=== PATIENT | female | born 1995 | race Caucasian/White ===

== ENCOUNTER 2022-11-13 22:29 | Inpatient (IN) ==
[2022-11-13] MEDS ORDERED: OXYTOCIN 30 UNITS/500 ML BAG IV PRN (23:38)
[2022-11-13] MEDS ORDERED: LIDOCAINE 1% LOCAL 20 ML VIAL INFIL PRN (23:38)
--- NOTE | 2022-11-13 23:50 | History & Physical Report ---
Date of Service November 13, 2022 Assessment & Plan (1) Active labor at term: (2) Uterine contractions at greater than 20 weeks of gestation: Plan: 27-year-old G1, P0 at 39 weeks and 6 days of gestation presenting with regular, painful contractions and cervical change, being admitted for labor, desires for epidural. Vital signs stable afebrile, GBS negative, heart rate reassuring, Plan to admit, monitor, labs, anesthesiology consult for epidural. Admission and Anticipated Discharge Date Admission Date: November 13, 2022 History of Present Illness Primary Care Provider: NO PCP Patient is a 27-year-old G1, P0 at 39 weeks and 6 days of gestation who has been feeling contractions all day, got more regular and painful for the last few hours. No leakage of fluid or bleeding. She reports good movements. Her has been uncomplicated, GBS negative. She has a history of congenital PFO and cardiac functions were normal per echocardiogram. echo was within normal limits. Allergies Allergy/AdvReac Type Severity Reaction Status Date / Time No Known Allergies Verified 07/13/18 23:11 Home Medications Medication Instructions Recorded Confirmed Type aspirin 81 mg chewable tablet 81 mg PO DAILY 11/13/22 11/13/22 History prenat.vits,shivam,twm-hwwz-ukzls 1 tab PO DAILY 11/13/22 11/13/22 History vitamin B12 0.5 mg-folic acid 1 mg 1 tab PO DAILY 11/13/22 11/13/22 History tablet Patient History Surgical History Hx of breast reduction, elective [place] teeth removed Social History Smoking Status: Never smoker Hx Alcohol Use: No Hx Substance Use: No Preferred Language: Cypriot Communication Ability: Effective 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 Review of Systems as per Subjective / HPI Physical Exam Constitutional: WD/WN, vitals as above well developed, well nourished and + acute distress (With contraction) Genitourinary: normal external appearance OB Exam Abdomen: + vertex Manual OB Exam: + cervical dilation 3 cm, + cervical effacement 90% and + station -1 OB Exam Monitor Tracing: + category I Results & Data Vital Signs (Past 12 Hours) Vital Signs Pulse Resp BP 11/13/22 22:47 18 11/13/22 22:43 83 131/68 Code Status & VTE Plan VTE Prophylaxis Plan VTE Prophylaxis will be ordered: No
[2022-11-13] MEDS: LACTATED RINGER'S 1,000 ML IV PRN (23:56)
[2022-11-14] MEDS ORDERED: ePHEDrine sulfate 50 MG/ML AMP ONE (00:11)
[2022-11-14] MEDS ORDERED: SODIUM CHLORIDE 0.9% PF INJ 10 ML VIAL ONE (00:11)
[2022-11-14] MEDS ORDERED: BUPIVACAINE 0.25% PF 30 ML VIAL ONE (00:11)
[2022-11-14] MEDS ORDERED: fentaNYL citrate PF 100 MCG/2 ML VIAL ONE (00:11)
[2022-11-14] MEDS ORDERED: LIDOCAINE 2%/EPINEPHRINE 1:200,000 20 ML PF ONE (00:11)
[2022-11-14] MEDS ORDERED: fentaNYL 2MCG/ML ROPIVACAINE 1.25MG/ML 100 ML BAG EPI ONE (00:12)
[2022-11-14 00:15] LABS: Hematocrit (blood only) 38.2 % (37.0-47.0); Mean Corpuscular Hemoglobin 31.4 pg (25.0-34.0); Mean Corpuscular Volume 92.3 fL (80.0-100.0); Mean Platelet Volume 10.3 fL (9.4-12.4); Platelet Count 203 K/uL (130-400); RDW Coefficient of Variation 14.7 % (11.5-14.5); RDW Standard Deviation 49.7 fL (36.4-46.3); Red Blood Count 4.14 M/uL (4.20-5.40); White Blood Count 14.45 K/ul (4.8-10.8)
--- NOTE | 2022-11-14 00:17 | Anesthesiology Consultation ---
Date of Service November 14, 2022 Assessment & Plan (1) Encounter for pre-operative examination: Chart Review Chart Review: Acceptable Risk for Labor Epidural History Height/Weight Height: 5 ft 2 in Weight: 83.007 kg Allergies Allergy/AdvReac Type Severity Reaction Status Date / Time No Known Allergies Verified 07/13/18 23:11 Medications Home Medications Medication Instructions Recorded Confirmed Last Taken aspirin 81 mg chewable tablet 81 mg PO DAILY 11/13/22 11/13/22 11/13/22 prenat.vits,shivam,qmy-nfpl-evxsb 1 tab PO DAILY 11/13/22 11/13/22 11/13/22 vitamin B12 0.5 mg-folic acid 1 mg 1 tab PO DAILY 11/13/22 11/13/22 11/13/22 tablet Active Medications Generic Name Dose Route Start Last Admin Trade Name Freq PRN Reason Stop Dose Admin Lactated Ringer's 1,000 mls @ 150 mls/hr 11/13/22 23:38 11/13/22 23:56 Lr IV 11/15/22 23:37 999 mls/hr .[id number] PRN Administration L&D Protocol Protocol Past Medical History Medical History (Updated 11/14/22 @ 00:17 by Veto Soto MD) No significant medical problems Past Surgical History Surgical History Hx of breast reduction, elective [place] teeth removed Social History Smoking Status: Never smoker Hx Alcohol Use: No Hx Substance Use: No substance use type: does not use Physical Exam Vital Signs Last Vital Signs Temp 37.0 C 11/13/22 23:53 Pulse 76 11/14/22 00:13 Resp 18 11/13/22 23:53 BP 131/68 11/13/22 22:43 Pulse Ox 100 11/14/22 00:13 Testing Laboratory Results 11/14/22 00:02
[2022-11-14] MEDS ORDERED: ePHEDrine sulfate 50 MG/ML AMP IV PRN (00:49)
[2022-11-14] MEDS ORDERED: ONDANSETRON INJ 2 MG/ML 2 ML VIAL IV PRN (00:49)
[2022-11-14] MEDS ORDERED: NALOXONE HCL 1 MG in SODIUM CHLORIDE 0.9% 1000ML 1,000 ML IV PRN (00:49)
[2022-11-14] MEDS ORDERED: fentaNYL 2MCG/ML ROPIVACAINE 1.25MG/ML 100 ML BAG EPI PRN (00:49)
[2022-11-14] MEDS ORDERED: NALOXONE HCL 0.4 MG/1 ML VIAL/CARP IV PRN (00:49)
[2022-11-14] MEDS: LACTATED RINGER'S 1,000 ML IV PRN ×2 (02:11→08:42)
[2022-11-14] MEDS ORDERED: OXYTOCIN 30 UNITS/500 ML BAG IV PRN ×2 (03:57→11:58)
--- NOTE | 2022-11-14 09:50 | Labor Progress Brief Note ---
Date of Service November 14, 2022 Assessment & Plan Admission and Anticipated Discharge Date Admission Date: November 13, 2022 Physical Exam Genitourinary: Manual OB Exam: + cervical dilation 10 cm, + cervical effacement 100%, + station 0 and + amniotic fluid clear OB Exam Monitor Tracing: + external FHT monitor used, + external uterine monitor used, + category I and + normal FHT variability AROM with Amni-hook clear fluid Results & Data Vital Signs (Past 12 Hours) Vital Signs Temp Pulse Resp BP Pulse Ox O2 Del Method 11/14/22 07:20 37.0 C 16 11/14/22 07:20 Room Air 11/13/22 22:47 18 11/14/22 09:48 105 H 99 11/14/22 09:43 98 H 98 11/14/22 09:42 103 H 127/74 11/14/22 09:38 100 H 99 11/14/22 09:30 18 11/14/22 09:30 18 11/14/22 09:33 98 H 100 11/14/22 09:28 90 98 11/14/22 09:26 90 124/71 11/14/22 09:15 37.2 C 11/14/22 09:23 104 H 100 11/14/22 09:00 18 11/14/22 09:00 18 11/14/22 09:18 95 H 100 11/14/22 09:13 115 H 136/73 100 11/14/22 08:30 16 11/14/22 08:30 16 11/14/22 09:08 92 H 100 11/14/22 09:03 104 H 99 11/14/22 08:58 96 H 99 11/14/22 08:56 87 105/58 L 11/14/22 08:53 85 100 11/14/22 08:48 92 H 98 11/14/22 08:43 89 100 11/14/22 08:41 76 137/74 11/14/22 08:38 80 100 11/14/22 08:33 90 100 11/14/22 08:28 87 100 11/14/22 08:27 80 133/77 11/14/22 08:23 98 H 100 11/14/22 08:18 80 100 11/14/22 08:13 78 100 11/14/22 08:00 18 11/14/22 08:00 18 11/14/22 08:11 82 153/76 H 11/14/22 08:08 81 99 11/14/22 08:03 76 99 11/14/22 07:58 84 100 11/14/22 07:56 96 H 111/57 L 11/14/22 07:53 88 99 11/14/22 07:48 79 99 11/14/22 07:43 79 100 11/14/22 07:41 85 114/56 L 11/14/22 07:38 85 100 11/14/22 07:33 80 100 11/14/22 07:28 78 100 11/14/22 07:27 75 102/55 L 11/14/22 07:23 89 99 11/14/22 07:18 85 100 11/14/22 07:13 79 99 11/14/22 07:11 86 155/60 H 11/14/22 07:08 86 100 11/14/22 07:03 115 H 100 11/14/22 06:58 79 100 11/14/22 06:56 77 147/65 H 11/14/22 06:53 83 100 11/14/22 06:48 88 98 11/14/22 06:43 84 98 11/14/22 06:41 75 112/58 L 11/14/22 06:38 75 98 11/14/22 06:33 85 98 11/14/22 06:28 85 99 11/14/22 06:26 83 117/60 11/14/22 06:23 75 98 11/14/22 06:18 88 98 11/14/22 06:13 80 99 11/14/22 06:12 70 115/60 11/14/22 06:08 82 99 11/14/22 06:03 74 100 11/14/22 05:58 94 H 99 11/14/22 05:57 91 H 117/64 11/14/22 05:53 84 100 11/14/22 05:48 81 100 11/14/22 05:43 83 100 11/14/22 05:42 80 102/59 L 11/14/22 05:38 79 100 11/14/22 05:33 89 100 11/14/22 05:28 83 100 11/14/22 05:26 90 104/57 L 11/14/22 05:23 83 97 11/14/22 05:18 81 97 11/14/22 05:13 82 97 11/14/22 05:11 79 107/59 L 11/14/22 05:08 86 97 11/14/22 05:03 78 99 11/14/22 05:00 18 11/14/22 05:00 18 11/14/22 04:58 91 H 98 11/14/22 04:57 82 107/56 L 11/14/22 04:53 96 H 98 11/14/22 04:48 92 H 100 11/14/22 04:43 86 100 11/14/22 04:41 93 H 106/55 L 11/14/22 04:38 86 100 11/14/22 04:33 96 H 100 11/14/22 04:28 84 100 11/14/22 04:27 87 110/55 L 11/14/22 04:23 88 100 11/14/22 04:18 90 99 11/14/22 04:13 16 11/14/22 04:13 36.7 C 100 H 16 97 11/14/22 04:11 85 104/59 L 11/14/22 04:08 81 96 11/14/22 04:03 90 97 11/14/22 04:00 82 94 11/14/22 03:58 82 95 11/14/22 03:56 77 101/53 L 11/14/22 03:53 81 95 11/14/22 03:48 78 95 11/14/22 03:43 79 95 11/14/22 03:41 82 108/58 L 11/14/22 03:38 82 95 11/14/22 03:33 83 95 11/14/22 03:28 83 95 11/14/22 03:26 81 106/54 L 11/14/22 03:23 83 96 11/14/22 03:18 84 97 11/14/22 03:13 91 H 98 11/14/22 03:11 83 110/57 L 11/14/22 03:08 83 97 11/14/22 03:03 81 96 11/14/22 02:58 102 H 99 11/14/22 02:57 78 121/61 11/14/22 02:53 82 97 11/14/22 02:48 90 97 11/14/22 02:43 81 97 11/14/22 02:42 76 104/54 L 11/14/22 02:38 76 98 11/14/22 02:33 75 97 11/14/22 02:28 79 98 11/14/22 02:27 79 100/53 L 11/14/22 02:23 79 98 11/14/22 02:18 76 99 11/14/22 02:13 94 H 99 11/14/22 02:11 90 95/50 L 11/14/22 02:08 89 98 11/14/22 02:03 94 H 94 11/14/22 01:58 90 95 11/14/22 01:59 89 94 11/14/22 01:56 88 92/53 L 11/14/22 01:53 92 H 95 11/14/22 01:48 91 H 95 11/14/22 01:43 87 98 11/14/22 01:38 84 97 11/14/22 01:33 90 98 11/14/22 01:28 93 H 98 11/14/22 01:25 82 111/53 L 11/14/22 01:23 93 H 97 11/14/22 01:21 86 113/53 L 11/14/22 01:18 83 98 11/14/22 01:15 80 103/54 L 11/14/22 01:13 82 98 11/14/22 01:10 82 111/51 L 11/14/22 01:08 82 97 11/14/22 01:06 88 107/52 L 11/14/22 01:03 94 H 98 11/14/22 00:59 18 11/14/22 00:59 36.8 C 90 18 103/55 L 11/14/22 00:58 84 99 11/14/22 00:57 90 104/52 L 11/14/22 00:53 84 99 11/14/22 00:54 83 102/51 L 11/14/22 00:51 84 114/58 L 11/14/22 00:48 99 11/14/22 00:48 80 11/14/22 00:48 85 18 124/55 L 11/14/22 00:45 88 130/74 11/14/22 00:43 87 100 11/14/22 00:41 95 H 122/63 11/14/22 00:38 100 H 100 11/14/22 00:33 99 H 100 11/14/22 00:28 101 H 100 11/14/22 00:23 87 99 11/14/22 00:13 76 100 11/14/22 00:08 74 100 11/14/22 00:03 77 100 11/13/22 23:53 18 11/13/22 23:53 37.0 C 18 11/13/22 22:43 37.0 C 83 131/68
--- NOTE | 2022-11-14 11:28 | Delivery Summary ---
Vaginal Delivery Summary Date of Service November 14, 2022 Vaginal Delivery Summary Delivery Note live female DARA with nuchal cord x1 reduced at delivery with delayed cord clamping and Apgars 8/9 weight pending. Cord blood obtained followed by spontaneous delivery of intact placenta with 3VC. Small 1st degree vaginal tear repaired with 3/0 Vicryl suture. EBL 100 ml. Final sponge, needle and instrument count are correct. Mom and baby stable.
[2022-11-14] MEDS ORDERED: DIPHTHERIA/TETANUS/PERTUSSIS 0.5mL SYR/VIAL (Age 7+yrs) IM ONE (11:58)
[2022-11-14] MEDS ORDERED: bisacodyL 10 MG SUPP PR PRN (11:58)
[2022-11-14] MEDS ORDERED: ACETAMINOPHEN 325 MG TAB PO PRN (11:58)
[2022-11-14] MEDS ORDERED: BENZOCAINE 20% AER SPR 82.5 GM CAN EXT PRN (11:58)
[2022-11-14] MEDS ORDERED: HYDROCORTISONE ACETATE 25 MG SUPP PR PRN (11:58)
[2022-11-14] MEDS ORDERED: IBUPROFEN 600 MG TAB PO PRN (11:58)
--- NOTE | 2022-11-14 12:19 | Anesthesia Procedure Note ---
Date of Service November 14, 2022 Anesthesia Post Epidural Note Vital Signs Vital Signs: Temp Pulse Resp BP Pulse Ox O2 Del Method 36.8 C 88 16 119/63 100 Room Air 11/14/22 12:10 11/14/22 12:10 11/14/22 12:10 11/14/22 12:10 11/14/22 11:13 11/14/22 07:20 Pain Intensity Back: Pain Intensity: 0 Notes Mental Status: alert / awake / arousable and participated in evaluation Nausea / Vomiting: adequately controlled Pain: adequately controlled Airway Patency, RR, SpO2: stable & adequate BP & HR: stable & adequate Hydration State: stable & adequate Neuraxial Anesthesia: was administered and sensory block is resolving Anesthetic Complications: no major complications apparent and Pt Satisfied with anesthetic care Epidural: Removed without complications and With tip intact
[2022-11-14] MEDS ORDERED: DOCUSATE SODIUM 100 MG CAP PO SCH (21:00)
[2022-11-15] MEDS ORDERED: Nursing to Pharmacy Communication SCH ×2 (00:15→08:15)
[2022-11-15] MEDS: IBUPROFEN 200 MG/10 ML UDC PO PRN ×4 (04:26→21:02)
[2022-11-15] MEDS ORDERED: FERROUS SULFATE 325 MG TAB PO SCH (08:00)
[2022-11-15 08:10] LABS: Hematocrit (blood only) 32.6 % (37.0-47.0); Hemoglobin 11.1 g/dl (12.0-16.0); Mean Corpuscular Hemoglobin 31.4 pg (25.0-34.0); Mean Corpuscular Volume 92.1 fL (80.0-100.0); Mean Platelet Volume 10.4 fL (9.4-12.4); Platelet Count 156 K/uL (130-400); RDW Coefficient of Variation 15.1 % (11.5-14.5); RDW Standard Deviation 50.6 fL (36.4-46.3); Red Blood Count 3.54 M/uL (4.20-5.40); White Blood Count 13.78 K/ul (4.8-10.8)
[2022-11-15] MEDS ORDERED: ACETAMINOPHEN SUSP 325 MG/10.15 ML UDC PO PRN (08:15)
[2022-11-15] MEDS ORDERED: NON-FORMULARY MEDICATION (Prenat.Vits,Cal,Min-Iron-Folic Tablet) PO SCH (09:00)
[2022-11-15] MEDS ORDERED: NON-FORMULARY MEDICATION (Vitamin B12-Folic Acid 0.5-1 mg Tablet) PO SCH (09:00)
[2022-11-15] MEDS: DOCUSATE SODIUM SYRUP 100 MG/10 ML UDC PO SCH ×2 (09:05→20:35)
[2022-11-15] MEDS: FERROUS SULFATE 325 MG/7.4 ML UDP PO SCH (11:01)
[2022-11-15] MEDS: PRENATAL VITAMIN 1 TAB PO SCH (11:01)
--- NOTE | 2022-11-15 11:02 | Obstetrical Progress Note ---
Date of Service November 15, 2022 Subjective Ambulation: ambulating normally Voiding: no voiding problems Passing Gas:: Yes Diet Tolerance:: regular diet Lochia:: Small Feeding Type:: breast feeding Current Pain Level(1-10): 0 Physical Exam Constitutional WD/WN, vitals as above Gastrointestinal (Abdomen) Inspection/Auscultation: abdomen normal to inspection fundus firm below U Musculoskeletal Extremities: extremities normal to inspection Skin no rashes, warm and dry Neurologic patellar DTR's 2+ bilat, sensation intact Psychiatric A+Ox3, euthymic affect Results & Data Vital Signs (Past 12 Hours) Vital Signs Temp Pulse Resp BP Pulse Ox O2 Del Method 11/15/22 07:40 36.7 C 76 16 112/72 98 Room Air 11/15/22 04:25 37.0 C 89 16 114/71 99 Room Air 11/14/22 23:50 36.9 C 101 H 16 118/69 99 Room Air Laboratory Results 11/13/22 11/14/22 11/15/22 23:37 00:02 07:55 WBC 14.45 H 13.78 H RBC 4.14 L 3.54 L Hgb 13.0 11.1 L Hct 38.2 32.6 L MCV 92.3 92.1 MCH 31.4 31.4 MCHC 34.0 34.0 RDW Std Deviation 49.7 H 50.6 H RDW Coeff of Yareli 14.7 H 15.1 H Plt Count 203 156 MPV 10.3 10.4 SARS-CoV-2, RNA, NAAT NEGATIVE
[2022-11-15] MEDS ORDERED: bisacodyL 5 MG TABEC PO SCH (20:00)
[2022-11-16] MEDS: IBUPROFEN 200 MG/10 ML UDC PO PRN (04:41)
--- NOTE | 2022-11-16 07:22 | Obstetrical Progress Note ---
Date of Service November 16, 2022 Subjective Ambulation: ambulating normally Voiding: no voiding problems Passing Gas:: Yes Diet Tolerance:: regular diet Lochia:: Small Feeding Type:: bottle feeding doing well Physical Exam Constitutional WD/WN, vitals as above Results & Data Vital Signs (Past 12 Hours) Vital Signs Temp Pulse Resp BP Pulse Ox O2 Del Method 11/15/22 23:25 36.7 C 82 18 108/68 98 Room Air Laboratory Results 11/13/22 11/14/22 11/15/22 23:37 00:02 07:55 WBC 14.45 H 13.78 H RBC 4.14 L 3.54 L Hgb 13.0 11.1 L Hct 38.2 32.6 L MCV 92.3 92.1 MCH 31.4 31.4 MCHC 34.0 34.0 RDW Std Deviation 49.7 H 50.6 H RDW Coeff of Yareli 14.7 H 15.1 H Plt Count 203 156 MPV 10.3 10.4 SARS-CoV-2, RNA, NAAT NEGATIVE
[2022-11-16 07:43] LABS: Hematocrit (blood only) 35.2 % (37.0-47.0); Hemoglobin 11.6 g/dl (12.0-16.0)
[2022-11-16] MEDS: FERROUS SULFATE 325 MG/7.4 ML UDP PO SCH (08:51)
[2022-11-16] MEDS: DOCUSATE SODIUM SYRUP 100 MG/10 ML UDC PO SCH (08:51)
[2022-11-16] MEDS: PRENATAL VITAMIN 1 TAB PO SCH (08:52)
== END 2022-11-16 09:45 | disposition home or self-care (01) | DRG 807 ==
LOC: OPB 22:29 → 4S1 22:33 → 4E2 11-14 14:06
DX: Z37.0 Single live birth; O70.0 First degree perineal laceration during delivery; O69.81X0 Labor and delivery complicated by cord around neck, without compression, not applicable or unspecified; Z79.82 Long term (current) use of aspirin

== ENCOUNTER 2023-11-24 03:21 | Inpatient (IN) ==
[2023-11-24] MEDS ORDERED: LIDOCAINE 1% LOCAL 20 ML VIAL INFIL PRN (03:38)
[2023-11-24] MEDS: LACTATED RINGER'S 1,000 ML IV PRN (03:42)
[2023-11-24 04:10] LABS: Hematocrit (blood only) 36.4 % (37.0-47.0); Hemoglobin 12.3 g/dl (12.0-16.0); Mean Corpuscular Hemoglobin 29.9 pg (25.0-34.0); Mean Corpuscular Hgb Conc 33.8 g/dL (32.0-36.0); Mean Corpuscular Volume 88.6 fL (80.0-100.0); Mean Platelet Volume 10.5 fL (9.4-12.4); Platelet Count 204 K/uL (130-400); RDW Coefficient of Variation 12.9 % (11.5-14.5); RDW Standard Deviation 42.1 fL (36.4-46.3); Red Blood Count 4.11 M/uL (4.20-5.40); White Blood Count 11.67 K/ul (4.8-10.8)
[2023-11-24] MEDS ORDERED: NALBUPHINE HCL 5 MG in SYRINGE 0 ML IV PRN (04:27)
[2023-11-24] MEDS ORDERED: NALOXONE HCL 0.4 MG/1 ML VIAL/CARP IV PRN (04:27)
[2023-11-24] MEDS ORDERED: diphenhydrAMINE 50 MG/ML VIAL IV PRN (04:27)
[2023-11-24] MEDS ORDERED: NALOXONE HCL 1 MG in SODIUM CHLORIDE 0.9% 1,000 ML IV PRN (04:27)
[2023-11-24] MEDS ORDERED: fentaNYL citrate PF 100 MCG/2 ML VIAL EPI PRN (04:27)
[2023-11-24] MEDS ORDERED: ONDANSETRON INJ 2 MG/ML 2 ML VIAL IV PRN (04:27)
[2023-11-24] MEDS ORDERED: ePHEDrine sulfate 50 MG/ML AMP IV PRN (04:27)
[2023-11-24] MEDS ORDERED: fentANYL 2 MCG/ML BUPIVacaine 0.125%-NSS 100ML BAG EPI PRN (04:27)
[2023-11-24] MEDS ORDERED: SODIUM CHLORIDE 0.9% PF INJ 10 ML VIAL EPI PRN (04:27)
[2023-11-24] MEDS ORDERED: BUPIVACAINE 0.25% PF 30 ML VIAL EPI PRN (04:27)
[2023-11-24] MEDS ORDERED: ROPIVACAINE 0.5% PF 5 MG/ML 20 ML VIAL EPI PRN (04:27)
[2023-11-24] MEDS ORDERED: LIDOCAINE 2% MPF LOCAL 5 ML VIAL EPI PRN (04:27)
--- NOTE | 2023-11-24 04:27 | Anesthesiology Consultation ---
Date of Service November 24, 2023 Assessment & Plan ASA ASA2 Proposed Anesthesia Anesthesia Type: Labor Epidural Risk / Benefits Reviewed With: PT / POA / Parent / Guardian, Accepts Plan and Informed Consent Obtained History Height/Weight Height: 5 ft 2 in Weight: 85.729 kg Allergies Allergy/AdvReac Type Severity Reaction Status Date / Time No Known Allergies Allergy Verified 11/19/23 14:47 Medications Home Medications Medication Instructions Recorded Confirmed Last Taken prenat.vits,shivam,ugl-jujk-chxnu 1 tab PO DAILY 11/13/22 11/19/23 11/13/22 Active Medications Generic Name Dose Route Start Last Admin Trade Name Freq PRN Reason Stop Dose Admin Lactated Ringer's 1,000 mls @ 125 mls/hr 11/24/23 03:38 11/24/23 04:43 Lr IV 11/26/23 03:37 125 mls/hr .Q8H PRN Administration L&D Protocol Protocol Past Medical History Medical History No significant medical problems Exercise / Class Metabolic Activity II 4-5 Yardwork/Stairs/Walk up hill Past Family History Family History Other Hypertension Past Surgical History Surgical History [place] teeth removed Hx of breast reduction, elective Past Anesthesia History No Hx of Anesthesia Complications and No Family Hx of Anesthesia Complications History of PONV No Hx of PONV and No Hx of Motion Sickness Social History Smoking Status: Never smoker Do You Dip or Chew Tobacco: No Hx Alcohol Use: No Hx Substance Use: No substance use type: does not use Review of Systems denies fever/cough/ colds/ chest pain/ SOB/ DEEDEE denies DEEDEE Physical Exam Vital Signs Last Vital Signs Temp 36.8 C 11/24/23 03:45 Pulse 96 H 11/24/23 05:06 Resp 22 11/24/23 03:45 BP 98/56 L 11/24/23 05:06 Pulse Ox 98 11/24/23 05:03 ENMT Mouth: no TMJ abnormality and no dentition abnormality Thyromental Distance: > or= 3.5 Finger Breadths Mallampati Class: II Neck neck extension not limited Respiratory normal respiratory effort; no respiratory distress Auscultation: lungs clear to auscultation bilaterally Cardiovascular Rate/Rhythm: regular rate and regular rhythm Neurologic moves all extremities Psychiatric Orientation: alert and oriented x 3 Testing Laboratory Results 11/24/23 03:52
[2023-11-24] MEDS: fentANYL 2 MCG/ML BUPIVacaine 0.125%-NSS 100ML BAG ONE (04:57)
[2023-11-24] MEDS: LIDOCAINE 2%/EPINEPHRINE 1:200,000 20 ML PF ONE (04:58)
[2023-11-24] MEDS: BUPIVACAINE 0.25% PF 30 ML VIAL ONE (04:58)
[2023-11-24] MEDS: fentaNYL citrate PF 100 MCG/2 ML VIAL ONE (04:58)
[2023-11-24] MEDS: SODIUM CHLORIDE 0.9% PF INJ 10 ML VIAL ONE (04:59)
[2023-11-24] MEDS: BUPIVACAINE 0.25% PF 30 ML VIAL EPI STA (06:06)
[2023-11-24] MEDS: SODIUM CHLORIDE 0.9% PF INJ 10 ML VIAL EPI STA (06:06)
[2023-11-24] MEDS: LIDOCAINE 2%/EPINEPHRINE 1:200,000 20 ML PF EPI STA (06:06)
[2023-11-24] MEDS: ePHEDrine sulfate 50 MG/ML AMP ONE (06:06)
[2023-11-24] MEDS: fentaNYL citrate PF 100 MCG/2 ML VIAL EPI STA (06:06)
--- NOTE | 2023-11-24 07:43 | History & Physical Report ---
Date of Service November 24, 2023 Assessment & Plan (1) Supervision of normal intrauterine in multigravida: Plan: Julia is a 28-year-old currently at 39 weeks 2 days gestational age in labor. Category 1 tracing noted. Will augment as needed. Vitals within normal limits. GBS negative (2) Normal labor: Admission and Anticipated Discharge Date Admission Date: November 24, 2023 History of Present Illness Primary Care Provider: NO PCP Julia is a 28-year-old G2, P1 currently at 2 days gestational age. Presents for active labor. has been uncomplicated to date. Denying leakage of fluid or vaginal bleeding. Normal movement Allergies Allergy/AdvReac Type Severity Reaction Status Date / Time No Known Allergies Allergy Verified 11/19/23 14:47 Home Medications Medication Instructions Recorded Confirmed Type prenat.vits,shivam,xmo-ptra-xauas 1 tab PO DAILY 11/13/22 11/19/23 History Patient History Medical History No significant medical problems Surgical History [place] teeth removed Hx of breast reduction, elective Family History Other Hypertension Social History (Updated 04/16/23 @ 13:30 by Amanda Israel) Smoking Status: Never smoker Do You Dip or Chew Tobacco: No; Hx Alcohol Use: No Hx Substance Use: No Preferred Language: Kiswahili Communication Ability: Effective 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 Beliefs That Will Affect Care: None marital status: marital status details: Rogerio: Alexis ([phone] Current Living Situation: Family Current Living Situation Comment: mom, dad, daughter, brother, fob current occupational status: unemployed Other Information That Helps Us Care for You: No Feels Safe at Home: Yes Assistive Devices: None Physical Exam Genitourinary: OB Exam Abdomen: + vertex Manual OB Exam: + cervical dilation (4.5) OB Exam Monitor Tracing: + external FHT monitor used, + external uterine monitor used, + category I and + normal FHT variability; no early decelerations present, no late decelerations present and no variable decelerations Exam per nurse Results & Data Vital Signs (Past 12 Hours) Vital Signs Temp Pulse Resp BP Pulse Ox 11/24/23 07:33 95 11/24/23 07:33 80 11/24/23 07:31 83 11/24/23 07:31 115/58 L 11/24/23 07:29 94 11/24/23 07:29 79 11/24/23 07:28 96 11/24/23 07:28 83 11/24/23 07:23 94 11/24/23 07:23 82 11/24/23 07:22 94 11/24/23 07:22 81 11/24/23 07:18 94 11/24/23 07:18 83 11/24/23 07:16 94 11/24/23 07:16 78 11/24/23 07:16 115/55 L 11/24/23 07:13 95 11/24/23 07:13 85 11/24/23 07:10 94 11/24/23 07:10 79 11/24/23 07:08 96 11/24/23 07:08 87 11/24/23 07:03 96 11/24/23 07:03 81 11/24/23 07:01 86 11/24/23 07:01 116/58 L 11/24/23 06:58 95 11/24/23 06:58 85 11/24/23 06:53 96 11/24/23 06:53 86 11/24/23 06:48 96 11/24/23 06:48 86 11/24/23 06:46 90 11/24/23 06:46 114/59 L 11/24/23 06:43 95 11/24/23 06:43 89 11/24/23 06:38 96 11/24/23 06:38 92 H 11/24/23 06:34 94 11/24/23 06:34 84 11/24/23 06:33 94 11/24/23 06:33 87 11/24/23 06:31 93 H 11/24/23 06:31 111/56 L 11/24/23 06:28 95 11/24/23 06:28 91 H 11/24/23 06:27 94 11/24/23 06:27 84 11/24/23 06:23 95 11/24/23 06:23 82 11/24/23 06:21 94 11/24/23 06:21 83 11/24/23 06:18 95 11/24/23 06:18 81 11/24/23 06:17 83 11/24/23 06:17 110/55 L 11/24/23 06:15 94 11/24/23 06:15 84 11/24/23 06:13 94 11/24/23 06:13 79 11/24/23 06:08 96 11/24/23 06:08 97 H 11/24/23 06:03 97 11/24/23 06:03 93 H 11/24/23 06:02 91 H 11/24/23 06:02 112/57 L 11/24/23 06:00 18 11/24/23 06:00 18 11/24/23 05:58 95 11/24/23 05:58 92 H 11/24/23 05:53 94 11/24/23 05:53 96 H 11/24/23 05:48 94 11/24/23 05:48 90 11/24/23 05:48 93 H 11/24/23 05:46 100 H 11/24/23 05:46 96/54 L 11/24/23 05:43 94 11/24/23 05:43 90 11/24/23 05:43 94 11/24/23 05:43 98 H 11/24/23 05:38 94 11/24/23 05:38 95 H 11/24/23 05:33 94 11/24/23 05:33 91 H 11/24/23 05:30 94 11/24/23 05:30 98 H 11/24/23 05:30 102 H 11/24/23 05:30 94/53 L 11/24/23 05:28 95 11/24/23 05:28 96 H 11/24/23 05:26 95 H 11/24/23 05:26 92/54 L 11/24/23 05:24 94 11/24/23 05:24 97 H 11/24/23 05:24 90 11/24/23 05:24 104/54 L 11/24/23 05:23 95 11/24/23 05:23 92 H 11/24/23 05:21 93 H 11/24/23 05:21 107/52 L 11/24/23 05:18 95 11/24/23 05:18 100 H 11/24/23 05:18 103/50 L 11/24/23 05:15 103 H 11/24/23 05:15 100/53 L 11/24/23 05:13 95 11/24/23 05:13 100 H 11/24/23 05:12 93 H 11/24/23 05:12 97/55 L 11/24/23 05:09 101 H 11/24/23 05:09 102/58 L 11/24/23 05:08 95 11/24/23 05:08 101 H 11/24/23 05:06 96 H 11/24/23 05:06 98/56 L 11/24/23 05:03 98 11/24/23 05:03 107 H 11/24/23 05:03 100 H 11/24/23 05:03 104/57 L 11/24/23 05:00 92 H 11/24/23 05:00 111/54 L 11/24/23 05:00 91 H 11/24/23 05:00 105/54 L 11/24/23 04:58 98 11/24/23 04:58 105 H 11/24/23 04:58 138/60 11/24/23 04:54 101 H 11/24/23 04:54 145/74 H 11/24/23 04:53 100 11/24/23 04:53 104 H 11/24/23 04:51 105 H 11/24/23 04:51 149/74 H 11/24/23 04:48 100 11/24/23 04:48 110 H 11/24/23 04:48 112 H 11/24/23 04:48 143/67 H 11/24/23 04:45 110 H 11/24/23 04:45 156/85 H 11/24/23 04:43 100 11/24/23 04:43 120 H 11/24/23 04:38 100 11/24/23 04:38 97 H 11/24/23 04:36 100 H 11/24/23 04:36 131/81 11/24/23 04:33 100 11/24/23 04:33 100 H 11/24/23 03:45 36.8 C 22 11/24/23 03:38 83 130/71 Coding Level of Care Code None Diagnoses Supervision of normal intrauterine in multigravida in third trimester Z34.83 Trimester: third trimester Normal labor O80; Z37.9 (1) Supervision of normal intrauterine in multigravida Trimester: third trimester Qualified Code(s): Z34.83 - Encounter for supervision of other normal , third trimester
[2023-11-24] MEDS: OXYTOCIN 30 UNITS/NSS 30 UNITS/500 ML BAG IV PRN (09:40)
[2023-11-24] MEDS ORDERED: HYDROCORTISONE ACETATE 25 MG SUPP PR PRN (10:31)
[2023-11-24] MEDS ORDERED: ACETAMINOPHEN 325 MG TAB PO PRN (10:31)
[2023-11-24] MEDS ORDERED: oxyCODONE/ACETAMINOPHEN 5mg/325mg TAB PO PRN (10:31)
[2023-11-24] MEDS ORDERED: bisacodyL 10 MG SUPP PR PRN (10:31)
[2023-11-24] MEDS ORDERED: OXYTOCIN 30 UNITS/NSS 30 UNITS/500 ML BAG IV PRN (10:31)
--- NOTE | 2023-11-24 12:13 | Anesthesia Procedure Note ---
Date of Service November 24, 2023 Anesthesia Post Epidural Note Vital Signs Vital Signs: Temp Pulse Resp BP Pulse Ox 99.0 F 77 20 113/58 L 97 11/24/23 07:16 11/24/23 12:08 11/24/23 11:27 11/24/23 11:57 11/24/23 12:08 Notes Mental Status: alert / awake / arousable and participated in evaluation Nausea / Vomiting: adequately controlled Pain: adequately controlled Airway Patency, RR, SpO2: stable & adequate BP & HR: stable & adequate Hydration State: stable & adequate Neuraxial Anesthesia: was administered and sensory block is resolving Anesthetic Complications: no major complications apparent and Pt Satisfied with anesthetic care Epidural: Removed without complications and With tip intact
--- NOTE | 2023-11-24 12:28 | Delivery Summary ---
Vaginal Delivery Summary Date of Service November 24, 2023 Vaginal Delivery Summary and 1st Degree LAC Patient is a 2 para 1-0-0-1 female EDC of [birth year]23 who presented in active labor. She received effective epidural analgesia. After rupture of membranes, she progressed to full dilation and pushed effectively over intact perineum. After the head was delivered there was a tight nuchal cord which was clamped and cut prior to delivering the rest of the infant. The rest of the delivered easily and was placed on the mother's abdomen for further attention and drying. He initially had poor tone and respiratory effort and therefore he was taken to the baby bed for further stimulation and evaluation. Upon arrival on the baby bed, he began to spontaneously cry. After cord blood was obtained, the placenta was expressed intact with a three-vessel cord. bleeding was controlled with fundal massage and dilute Pitocin. A first-degree perineal laceration was repaired with 3-0 chromic in the usual fashion. QBL was 212 mL. Mother and infant were doing well after delivery. [facility] [place] Vaginal Delivery Charge Delivery Type Details: and 1st Degree LAC
[2023-11-24] MEDS: BENZOCAINE 20% SPRY 85 APPLN/85 GM CAN EXT PRN (14:44)
[2023-11-24] MEDS: DIPHTHER/TETAN/PERTUS Vaccine (Tdap, Adol/Adult) 0.5mL IM ONE (14:48)
[2023-11-24] MEDS: IBUPROFEN 600 MG TAB PO PRN (21:06)
[2023-11-24] MEDS: DOCUSATE SODIUM 100 MG CAP PO SCH (21:06)
[2023-11-25 06:47] LABS: Hematocrit (blood only) 33.1 % (37.0-47.0); Hemoglobin 10.9 g/dl (12.0-16.0); Mean Corpuscular Hemoglobin 29.9 pg (25.0-34.0); Mean Corpuscular Hgb Conc 32.9 g/dL (32.0-36.0); Mean Corpuscular Volume 90.7 fL (80.0-100.0); Mean Platelet Volume 10.6 fL (9.4-12.4); Platelet Count 160 K/uL (130-400); RDW Coefficient of Variation 13.2 % (11.5-14.5); RDW Standard Deviation 43.9 fL (36.4-46.3); Red Blood Count 3.65 M/uL (4.20-5.40); White Blood Count 10.37 K/ul (4.8-10.8)
--- NOTE | 2023-11-25 07:31 | Obstetrical Progress Note ---
Date of Service November 25, 2023 Assessment & Plan (1) Encounter for care and examination after delivery: satisfactory course continue current care plan wishes to be discharged if baby is able to be discharged as well, Subjective Ambulation: ambulating normally Voiding: no voiding problems Passing Gas:: Yes Diet Tolerance:: regular diet Lochia:: Small Feeding Type:: bottle feeding Review of Systems All systems reviewed & are unremarkable except as noted in HPI & below Physical Exam Constitutional WD/WN, vitals as above Psychiatric A+Ox3, euthymic affect Genitourinary OB Exam Abdomen: + fundal height Fundus: + firm and + relation to umbilicus (at U) Results & Data Vital Signs (Past 12 Hours) Vital Signs Temp Pulse Resp BP Pulse Ox O2 Del Method 11/25/23 03:30 98.2 F 76 18 108/70 98 Room Air 11/24/23 23:45 97.7 F 93 H 16 126/72 99 Room Air 11/24/23 20:30 97.9 F 106 H 20 127/75 99 Room Air
[2023-11-25] MEDS: PRENATAL VITAMIN 1 TAB PO SCH (07:58)
[2023-11-25] MEDS ORDERED: bisacodyL 5 MG TABEC PO SCH (20:00)
== END 2023-11-25 12:47 | disposition home or self-care (01) | DRG 807 ==
LOC: OPB 03:21 → 4S1 03:23 → 4E2 14:08